=== PATIENT | female | born 1995 | race Caucasian/White ===

== ENCOUNTER 2022-03-16 06:36 | Day surgery (SDC) | payer OTHER ==
[2022-03-13 09:40] VITALS: BMI 23.3
[2022-03-16] MEDS ORDERED: BUPIVACAINE HCL 100 ML ONE (07:09)
[2022-03-16] MEDS ORDERED: BACITRACIN ZINC 15 GM TUBE TOPICAL OINTMENT ONE (07:09)
[2022-03-16] MEDS ORDERED: LIDOCAINE HCL 1%, 10 MG/ML (20ML VIAL) ONE (07:09)
[2022-03-16] MEDS ORDERED: PROPOFOL 40 ML ONE (07:31)
[2022-03-16] MEDS ORDERED: SUCCINYLCHOLINE CHLORIDE 200 MG/10 ML SYRINGE ONE (07:31)
[2022-03-16] MEDS ORDERED: MIDAZOLAM HCL 2 MG/2 ML SINGLE DOSE VIAL ONE (07:32)
[2022-03-16] MEDS ORDERED: LIDOCAINE HCL 2% JELLY 11 ML TP ONE (07:33)
[2022-03-16] MEDS ORDERED: ceFAZolin SODIUM 1 GM VIAL ONE (08:07)
[2022-03-16] MEDS ORDERED: ONDANSETRON 4 MG/2 ML VIAL ONE (08:07)
[2022-03-16] MEDS ORDERED: KETOROLAC TROMETHAMINE 30 MG/1 ML VIAL ONE (08:07)
[2022-03-16] MEDS ORDERED: DEXAMETHASONE SOD PHOSPHATE 4 MG/1 ML VIAL ONE (08:07)
[2022-03-16] MEDS ORDERED: PROMETHAZINE HCL 25 MG/1 ML VIAL IVPUSH PRN (08:55)
[2022-03-16] MEDS ORDERED: ONDANSETRON 4 MG/2 ML VIAL IVPUSH PRN (08:55)
[2022-03-16] MEDS ORDERED: oxyCODONE HCL 5 MG TABLET PO PRN ×2 (08:55)
[2022-03-16 09:54] VITALS: RESP 18; TEMP 97.9
[2022-03-16 11:00] VITALS: BP 101/60; PULSE 61
== END 2022-03-16 10:45 | disposition home or self-care (01) ==
LOC: FASU 06:36
PROVIDERS: ATTEND Orthopaedic Surgery
PROC: 0RBN0ZZ Excision of Right Wrist Joint, Open Approach (ICD-10-PCS; principal; 2022-03-16 08:21)
DX: M67.431 Ganglion, right wrist (principal); M65.831 Other synovitis and tenosynovitis, right forearm; R22.31 Localized swelling, mass and lump, right upper limb
CPT/HCPCS: 81025; 88304-TC; 94760